=== PATIENT | female | born 1970 | race Caucasian/White ===

== ENCOUNTER 2019-09-10 13:34 | Emergency (ER) | payer OTHER, SELFPAY ==
[2019-09-10 13:47] VITALS: BP 123/72; PULSE 64; RESP 16; TEMP 37.2; O2SAT 100
--- NOTE | 2019-09-10 14:33 | ED.URI ---
HPI - URI/Sore Throat General Chief Complaint: Upper Respiratory Infection Stated Complaint: ear pain/howell/sore throat Source: patient Mode of arrival: ambulatory Limitations: no limitations History of Present Illness HPI Narrative: Patient is a 49-year-old female who presents complaining of headache, sore throat, bilateral ear pain, cough, sinus pressure, facial pain, dental pain and generalized body aches x10+ days. Patient reports being treated a month ago for dental infection. Patient reports scheduled root canal 09/17/2019. Patient reports intermittently taking Tylenol and ibuprofen for complaints without relief. Patient reports pain of 11/15. MD elicited complaint: cough, sore throat, nasal congestion and sinus pain Related Data Allergies Allergy/AdvReac Type Severity Reaction Status Date / Time No Known Allergies Allergy Verified 09/10/19 13:54 Review of Systems Review of Systems: Narrative: CONSTITUTIONAL: Denies fever, chills, or sweats. EYES: Denies visual changes, redness, or discharge. ENT: Denies rhinorrhea, reports congestion, sore throat, and bilateral otalgia. Reports facial pressure CARDIOVASCULAR: Denies chest pain, palpitations, or edema. RESPIRATORY: Reports cough, denies dyspnea. GASTROINTESTINAL: Denies abdominal pain, nausea, vomiting, or diarrhea. GENITOURINARY: Denies dysuria or hematuria. SKIN: Denies rash or itching. MUSCULOSKELETAL: Denies back pain, joint pain, or myalgia. NEUROLOGIC: Reports intermittent headache, denies numbness, dizziness, or weakness. PSYCHIATRIC: Denies anxiety or depression. PMFSH Past Medical History Medical History Chicken pox Depression Hemorrhoids Homozygous Factor V Leiden mutation Family History Family History Mother Hypertension Father Factor 5 Leiden mutation, heterozygous Social History Social History Smoking status: Never smoker Alcohol intake: current Exam Narrative: Exam Narrative: GENERAL: Well-appearing, well-nourished, and in no acute distress. HEAD: Normocephalic, atraumatic. EYES: EOMI. No redness or drainage. Conjunctiva are normal. ENT: Mucous membranes pink and moist. Nares clear. No rhinorrhea. TMs normal bilaterally. Throat mild erythema and edema, no exudate. Maxillary sinus tenderness with palpation. Uvula midline. NECK: AROM. Supple. No lymphadenopathy. CHEST: No respiratory distress. Clear to auscultation. HEART: Regular rate and rhythm. No murmur appreciated. Normal peripheral pulses. SKIN: Warm, dry, no rash. NEURO: No focal deficits. Alert and oriented x3. Gait steady. PSYCH: Normal affect. No signs of depression or anxiety. Course Vital Signs Vital signs: Vital Signs Temperature 37.2 C 09/10/19 13:47 Pulse Rate 64 09/10/19 13:47 Respiratory Rate 16 09/10/19 13:47 Blood Pressure 123/72 09/10/19 13:47 Pulse Oximetry 100 09/10/19 13:47 Temperature 37.2 C 09/10/19 13:47 Pulse Rate 64 09/10/19 13:47 Respiratory Rate 16 09/10/19 13:47 Blood Pressure 123/72 09/10/19 13:47 Pulse Oximetry 100 09/10/19 13:47 Reviewed MDM - URI/Sore Throat MDM Narrative Medical decision making narrative: Patient likely to have sinusitis. Discussed plan of care and treatment with antibiotics because of length of symptoms. Patient agrees with plan of care. Patient is stable for discharge to home with outpatient follow-up as needed. Differential Diagnosis Differential diagnosis: Likely upper respiratory infection and sinusitis Critical Care Time Critical Care Time Critical Care Time: No Discharge Plan Discharge Clinical Impression: Sinusitis Qualifiers: Sinusitis location: maxillary Chronicity: acute Recurrence: not specified as recurrent Qualified Code(s): J01.00 - Acute maxillary sinusitis, unspecified Patient Disposition:
== END 2019-09-10 14:47 | disposition home or self-care (01) ==
PROVIDERS: Emergency Provider Nurse Practitioner; PCP Nurse Practitioner
DX: J01.00 Acute maxillary sinusitis, unspecified (principal); F32.9 Major depressive disorder, single episode, unspecified
CPT/HCPCS: 87804; 99213; G0463

== ENCOUNTER → 2021-05-21 10:31 | Outpatient (CLI) | payer OTHER, SELFPAY ==
--- NOTE | ~2021-05-21 | MR_ITS ---
EXAMINATION: MR ankle RT wo con DATE: 05/21/2021 11:27 INDICATION: Achilles tendinitis with pain with walking TECHNIQUE: Magnetic resonance imaging (MRI) of the right ankle was performed without intravenous cont rast. Sequences included sagittal, coronal, and axial proton-density weighted fast spin echo without and with fat saturation. COMPARISON: Right foot radiographs dated 04/08/2017 FINDINGS: Medial ankle ligaments: Deep and superficial deltoid ligaments as well as the spring ligament are normal. Lateral ankle ligaments: The anterior and posterior inferior tibiofibular ligaments are normal. The anterior talofibular, calc aneofibular and posterior talofibular ligaments are normal. Tendons: There is mild fusiform thickening of the Achilles tendon centered approximately 3.5 cm above the inse rtion consistent with mild Achilles tendinosis. No evident tear or peritendinitis. The peroneus longu s tendon is normal. There is moderate tendinopathy and longitudinal split tearing of the peroneus tobias vis tendon beginning at the level of the retromalleolar groove and extends thickening distally to the level of the calcaneocuboid joint line. The tibialis anterior and extensor hallucis longus and exten sor digitorum longus tendons are normal. The tibialis posterior, flexor digitorum longus and flexor h allucis longus tendons are normal. Plantar fascia: Latter aponeurosis is normal. 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 Minimal osteoarthritis at the remai richard tarsal metatarsal joints. Bone marrow signal is otherwise normal. No fracture or pathologic claudia ow replacing process. Lisfranc ligament complex is normal. There is Tarsi and tarsal tunnel are unrem arkable. Fluid: Physiologic amount fluid in the joint spaces. No other abnormal fluid collections. IMPRESSION: 1. Moderate tendinopathy and longitudinal split tearing of the peroneus brevis tendon. 2. Mild Achilles tendinosis without peritendinitis or tear. 3. Mild to moderate osteoarthritis subarticular edema at the first tarsal metatarsal joint. Reviewed, dictated and finalized at location A. IMPRESSION: 1. Moderate tendinopathy and longitudinal split tearing of the peroneus brevis tendon. 2. Mild Achilles tendinosis without peritendinitis or tear. 3. Mild to moderate osteoarthritis subarticular edema at the first tarsal metat arsal joint.
== END ==
PROVIDERS: Visit Provider Podiatrist Foot & Ankle Surgery
DX: M76.61 Achilles tendinitis, right leg (principal); S96.811A Strain of other specified muscles and tendons at ankle and foot level, right foot, initial encounter; M19.071 Primary osteoarthritis, right ankle and foot
CPT/HCPCS: 73721

== ENCOUNTER 2022-05-04 08:54 | Outpatient (CLI) | payer OTHER, SELFPAY ==
[2022-05-04 19:55] LABS: Alanine Aminotransferase 20 U/L (6-35); Albumin Level 4.7 g/dL (3.5-5.1); Alkaline Phosphatase 70 U/L (38-126); Anion Gap 13 mmol/L (8-16); Aspartate Amino Transferase 62 U/L (14-36); Bilirubin,Total 0.5 mg/dL (0.2-1.3); Blood Urea Nitrogen 19 mg/dL (7-17); Calcium 9.7 mg/dL (8.4-10.2); Carbon Dioxide 29 mmol/L (22-30); Chloride 99 mmol/L (98-107); Cholesterol 190 mg/dL (0-200); Estimated Glomerular Filt Rate > 60; Glucose 84 mg/dL (65-110); HDL Direct 79 mg/dL; Potassium 4.7 mmol/L (3.4-5.0); Sodium 141 mmol/L (137-145); Triglycerides 48 mg/dL (<150)
[2022-05-04 20:06] LABS: LDL Cholesterol Direct 72 mg/dL
[2022-05-04 20:16] LABS: Basophils Percent Auto 0.7 % (0.2-1.2); Eosinophils Absolute Auto 0.1 K/mm3 (0-0.3); Eosinophils Percent Auto 1.8 % (0-4.4); Hematocrit 42.3 % (37.0-47.0); Hemoglobin 13.4 g/dL (12.0-15.0); Immature Granulocyte Absolute 0.01 K/mm3 (0.00-0.031); Immature Granulocyte Percent A 0.2 % (0-0.5); Lymphocytes Absolute Auto 1.59 K/mm3 (0.9-3.2); Lymphocytes Percent Auto 35.9 % (18.3-44.2); Mean Corpuscular HGB Conc 31.7 g/dl (32-36); Mean Corpuscular Hemoglobin 29.3 pg (26-34); Mean Corpuscular Volume 92.6 fl (80-100); Mean Platelet Volume 12.3 fl (7.4-10.4); Monocytes Absolute Auto 0.4 K/mm3 (0.1-0.6); Monocytes Percent Auto 9.3 % (2.6-8.5); Neutrophils Absolute Auto 2.3 K/mm3 (1.3-6.7); Neutrophils Percent Auto 52.1 % (45.5-73.1); Platelet Count Result 182 k/mm3 (150-375); Red Blood Count 4.57 M/mm3 (4.2-5.4); Red Cell Distribution Width 12.3 % (11.5-14.5); White Blood Count 4.4 K/mm3 (4.5-10.0)
[2022-05-04 20:25] LABS: Vitamin D 25 Hydroxy 44.2 ng/mL
[2022-05-04 20:26] LABS: Thyroid Stimulating Hormone 0.956 uIU/mL (0.465-4.680)
== END 2022-05-04 08:55 | disposition home or self-care (01) ==
LOC: ANHGOSHLAB 08:56
PROVIDERS: PCP Internal Medicine; Visit Provider Clinical Nurse Specialist
DX: Z13.228 Encounter for screening for other metabolic disorders (principal); Z13.220 Encounter for screening for lipoid disorders; F41.9 Anxiety disorder, unspecified; E55.9 Vitamin D deficiency, unspecified
CPT/HCPCS: 36415; 80053; 80061; 82306; 84443; 85025

== ENCOUNTER 2022-06-07 07:22 | Outpatient (CLI) | payer OTHER, SELFPAY ==
[2022-06-07 08:45] LABS: Iron 76 ug/dL (37-170)
[2022-06-07 08:48] LABS: Alanine Aminotransferase 21 U/L (6-35); Albumin Level 4.4 g/dL (3.5-5.1); Alkaline Phosphatase 78 U/L (38-126); Anion Gap 11 mmol/L (8-16); Aspartate Amino Transferase 30 U/L (14-36); Bilirubin,Total 0.7 mg/dL (0.2-1.3); Blood Urea Nitrogen 19 mg/dL (7-17); Calcium 8.9 mg/dL (8.4-10.2); Carbon Dioxide 27 mmol/L (22-30); Chloride 102 mmol/L (98-107); Estimated Glomerular Filt Rate > 60; Glucose 88 mg/dL (65-110); Potassium 4.3 mmol/L (3.4-5.0); Sodium 140 mmol/L (137-145)
[2022-06-07 08:57] LABS: Percent Iron Saturation 18 % (20-50)
[2022-06-07 09:56] LABS: Folic Acid > 20.0 ng/mL (2.76->20)
== END 2022-06-07 07:23 | disposition home or self-care (01) ==
LOC: ANHLAB 07:24
PROVIDERS: PCP Internal Medicine; Visit Provider Clinical Nurse Specialist
DX: R74.8 Abnormal levels of other serum enzymes (principal); R41.3 Other amnesia
CPT/HCPCS: 36415; 80053; 82607; 82728; 82746; 83540; 83550

== ENCOUNTER 2022-07-20 00:27 | Day surgery (SDC) | payer OTHER, SELFPAY ==
[2022-07-14 10:24] VITALS: BMI 22.1
[2022-07-20 06:23] VITALS: BP 135/83; PULSE 85; RESP 18; TEMP 36.2; O2SAT 98; BMI 22.4
[2022-07-20] MEDS: LACTATED RINGERS 1,000 ML 150 ML IV CONT (06:46)
--- NOTE | 2022-07-20 07:23 | WPDANESEPPF ---
Anes - Initial Pre Proc Eval Procedure: Operation Date: 07/20/22 07:30 Proposed Procedures p Screening Colonoscopy - Gerber Rawls MD Date/Time: 07/20/22 07:23 Surgeon: Gerber Rawls MD Pre Op Diagnosis: Neoplasm Screening Patient Data Age: 52 Gender: F Height: 1.75 m Weight: 68.8 kg Last Vital Signs Temp 97.1 F L 07/20/22 06:23 Pulse 85 07/20/22 06:23 Resp 18 07/20/22 06:23 BP 135/83 07/20/22 06:23 Pulse Ox 98 07/20/22 06:23 O2 Del Method Room Air 07/20/22 06:23 Allergies Allergy/AdvReac Type Severity Reaction Status Date / Time No Known Allergies Allergy Verified 07/20/22 06:31 Home Medications Medication Instructions Recorded Confirmed Type venlafaxine 37.5 mg 37.5 mg PO QPM #90 caps 07/08/22 07/20/22 Rx capsule,extended release 24 hr (Effexor XR) azithromycin 250 mg tablet See Rx Instructions PO .COMPLEX #6 07/16/22 07/20/22 Rx (Zithromax Z-Doug) tabs ibuprofen 200 mg tablet (Advil) 200 mg PO Q6H PRN pain 07/16/22 07/20/22 History Patient hx anesthesia problems: none Family hx anesthesia problems: none Results Review: All pre-operative results and documents have been reviewed as part of the pre-operative evaluation. 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 Smoking status: Never smoker Alcohol intake: current Alcohol use details: occasional Substance use: never Substance use type: does not use Lack of Transportation: No Lack of Food: Never True Current Housing: I Have Housing Concerned About Future Housing: No Difficulty Paying Gas/Electric Bills: No Difficulty Paying for Meds: No Currently Unemployed: No Education: Master's Degree or Higher Difficulty w/ Childcare or Family Care: No Living arrangements: with family Gender identity (if verbalized by the patient): Female Spiritual care concerns: No Agree to blood products: Yes Anes - Eval Final PreProcedure Day of Procedure 07/20/22 07:23 Patient weight: normal Heart: regular rate and rhythm Lungs: clear to auscultation Airway: Mallampati scale class II Neurological: alert and oriented Last oral intake: >/= 8 hours ASA classification: II Emergent: no Anesthetic plan: proceed Anesthesia type and monitoring: general GIVS and standard monitoring Results Review: All pre-operative results and documents have been reviewed as part of the pre-operative evaluation. Informed Consent: The patient's anesthetic plan and its attendant risks and benefits were discussed with the patient/family/POA. Questions were solicited and answers provided to the satisfaction of the patient/family/POA.
--- NOTE | 2022-07-20 07:27 | PM.HPGS ---
History of Present Illness History of Present Illness Consent: Risks, benefits, and alternatives have been discussed and questions answered. Patient agrees to proceed with procedure. Chief complaint: Neoplasm Screening Narrative: Ebony Benitez is a 52 year old female here for first screening colonoscopy Review of Systems Constitutional: Constitutional: Denies headache(s) and Denies weakness Eyes: Eyes: Denies blurry vision ENT: Reports Normal hearing present, Denies headache(s) and Denies neck pain Cardiovascular: Cardiovascular: Denies chest pain and Denies dyspnea Respiratory: Respiratory: Denies dyspnea Gastrointestinal: Gastrointestinal: Reports no additional gastrointestinal complaints Genitourinary: Genitourinary: Denies dysuria Musculoskeletal: Musculoskeletal: Denies neck pain Integumentary/Breasts: Skin/Breast: Denies dry skin Neurologic: Reports Normal hearing present, Denies headache(s) and Denies weakness Psychiatric: Psychiatric: Denies anxiety Endocrine: Endocrine: Denies change in body appearance Hematologic/Lymphatic: Hematologic/Lymphatic: Denies easy bleeding Allergic/Immunologic: Allergic/Immunologic: Denies urticaria PMFSH Past Medical History Medical History Anxiety Chicken pox Depression Hemorrhoids Homozygous Factor V Leiden mutation Family History Family History Mother Hypertension Father Factor 5 Leiden mutation, heterozygous Social History Social History (Updated 07/16/22 @ 15:48 by Lauren Goodman NP) Social History: 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. Smoking status: Never smoker Alcohol intake: current Alcohol use details: occasional Substance use: never Substance use type: does not use Lack of Transportation: No Lack of Food: Never True Current Housing: I Have Housing Concerned About Future Housing: No Difficulty Paying Gas/Electric Bills: No Difficulty Paying for Meds: No Currently Unemployed: No Education: Master's Degree or Higher Difficulty w/ Childcare or Family Care: No Living arrangements: with family Gender identity (if verbalized by the patient): Female Spiritual care concerns: No Agree to blood products: Yes Meds Home Medications and Allergies Home Medications Medication Instructions Recorded Confirmed Type venlafaxine 37.5 mg 37.5 mg PO QPM #90 caps 07/08/22 07/20/22 Rx capsule,extended release 24 hr (Effexor XR) azithromycin 250 mg tablet See Rx Instructions PO .COMPLEX #6 07/16/22 07/20/22 Rx (Zithromax Z-Doug) tabs ibuprofen 200 mg tablet (Advil) 200 mg PO Q6H PRN pain 07/16/22 07/20/22 History Allergies Allergy/AdvReac Type Severity Reaction Status Date / Time No Known Allergies Allergy Verified 07/20/22 06:31 Vital Signs Vital Signs - 24 hr 07/20/22 06:23 Temperature 97.1 F L Pulse Rate 85 Respiratory Rate 18 Blood Pressure 135/83 Pulse Oximetry 98 Oxygen Delivery Room Air Exam Const: General: comfortable and no acute distress HENMT: Face/Nose/Sinus: Normal nares present Eyes: General: appearance normal, both eyes and all related structures Neck: Neck: no JVD Resp: Auscultation: clear to auscultation bilaterally Cardio: Rate: regular rate Rhythm: regular rhythm GI: Inspection: non-distended GI Palp: Yes Soft to palpation Skin: General skin exam: normal color Neuro: General: gait normal Speech: normal speech Extrem: General: normal to inspection Psych: Mental Status: mental status grossly normal Assessment and Plan Assessment and plan (1) Screening for colon cancer: Code(s): Z12.11 - Encounter for screening for malignant neoplasm of colon Status: Acute Assessment and Plan: colonoscopy
[2022-07-20 07:41] VITALS: BP 104/61; PULSE 75; RESP 27; O2SAT 97
[2022-07-20 07:51] VITALS: BP 92/52; PULSE 66; RESP 14; O2SAT 98
[2022-07-20 08:01] VITALS: BP 107/70; PULSE 65; RESP 15; O2SAT 100
--- NOTE | 2022-07-20 08:13 | SUR.PHASEII ---
Patient's BP is elevated in post op. (see flow sheet) Informed Dr. Bridges and SHIRA Moore. No new interventions at this time. Instructed to tell patient to take BP meds when he gets home. Patient verbalizes understanding.
== END 2022-07-20 08:16 | disposition home or self-care (01) ==
PROVIDERS: PCP Internal Medicine; Visit Provider Internal Medicine Gastroenterology
PROC: 0DJD8ZZ Inspection of Lower Intestinal Tract, Via Natural or Artificial Opening Endoscopic (ICD-10-PCS; CPT 45378; principal; 2022-07-20 07:30)
DX: Z12.11 Encounter for screening for malignant neoplasm of colon (principal); K64.8 Other hemorrhoids; F41.9 Anxiety disorder, unspecified; F32.A Depression, unspecified; D68.51 Activated protein C resistance
CPT/HCPCS: 45378; J2704; J7120

== ENCOUNTER 2023-08-24 09:01 | Outpatient (CLI) | payer OTHER, SELFPAY ==
[2023-08-24 13:13] LABS: Basophils Percent Auto 0.6 % (0.2-1.2); Eosinophils Absolute Auto 0.2 K/mm3 (0-0.3); Eosinophils Percent Auto 2.9 % (0-4.4); Hematocrit 41.7 % (37.0-47.0); Hemoglobin 13.2 g/dL (12.0-15.0); Immature Granulocyte Absolute 0.01 K/mm3 (0.00-0.031); Immature Granulocyte Percent A 0.2 % (0-0.5); Lymphocytes Absolute Auto 1.69 K/mm3 (0.9-3.2); Lymphocytes Percent Auto 32.1 % (18.3-44.2); Mean Corpuscular HGB Conc 31.7 g/dl (32-36); Mean Corpuscular Volume 91.6 fl (80-100); Mean Platelet Volume 11.6 fl (7.4-10.4); Monocytes Absolute Auto 0.5 K/mm3 (0.1-0.6); Monocytes Percent Auto 9.7 % (2.6-8.5); Neutrophils Absolute Auto 2.9 K/mm3 (1.3-6.7); Neutrophils Percent Auto 54.5 % (45.5-73.1); Platelet Count Result 205 k/mm3 (150-375); Red Blood Count 4.55 M/mm3 (4.2-5.4); Red Cell Distribution Width 12.2 % (11.5-14.5); White Blood Count 5.3 K/mm3 (4.5-10.0)
[2023-08-24 13:57] LABS: Iron 112 ug/dL (37-170)
[2023-08-24 14:06] LABS: Percent Iron Saturation 29 % (20-50)
[2023-08-27 07:41] LABS: FSH 72.3 mIU/mL (***); Progesterone <0.2 ng/mL (***)
[2023-08-31 21:02] LABS: Estradiol, Ultrasensitive <2 pg/mL
== END 2023-08-24 09:02 | disposition home or self-care (01) ==
LOC: ANHGOSHLAB 09:02
PROVIDERS: PCP Internal Medicine; Visit Provider Obstetrics & Gynecology
DX: N93.9 Abnormal uterine and vaginal bleeding, unspecified (principal)
CPT/HCPCS: 36415; 82670; 82728; 83001; 83540; 83550; 84144; 85025

== ENCOUNTER → 2023-09-19 11:07 | Outpatient (CLI) | payer OTHER, SELFPAY ==
--- NOTE | ~2023-09-19 | MM_ITS ---
EXAMINATION: MM screening [facility] BI w sai HISTORY: Screening mammogram TECHNIQUE: Craniocaudal and mediolateral oblique 3-D tomosynthesis images were obtained and synthetic 2-D images were generated. CAD analysis was submitted and interpreted. COMPARISON: 06/22/2019, 01/20/2018, 05/31/2016 BREAST PARENCHYMAL COMPOSITION: The breasts are extremely dense, which lowers the sensitivity of mamm ography. FINDINGS: No suspicious mass, calcification, or architectural distortion are identified in either tobias ast to suggest malignancy. There has been no suspicious interval change. IMPRESSION: 1. No mammographic evidence of malignancy. 2. Recommend routine screening mammography in one year. BI-RADS Category 1: Negative Reviewed, dictated and finalized at location A. ICAL SOCIAL WORK AIDE
== END ==
PROVIDERS: PCP Nurse Practitioner; Visit Provider Nurse Practitioner
DX: Z12.31 Encounter for screening mammogram for malignant neoplasm of breast (principal)
CPT/HCPCS: 77063; 77067

== ENCOUNTER 2024-09-21 10:36 | Outpatient (CLI) | payer OTHER, SELFPAY ==
--- NOTE | ~2024-09-21 | MM_ITS ---
EXAMINATION: MM screening [facility] BI w sai HISTORY: Screening TECHNIQUE: Craniocaudal and mediolateral oblique 3-D tomosynthesis images were obtained and synthetic 2-D images were generated. CAD analysis was submitted and interpreted. COMPARISON: Comparison to multiple prior studies sequentially, with oldest reviewed study dated 05/09. BREAST PARENCHYMAL COMPOSITION: Dense: The breasts are heterogeneously dense, which may obscure small masses FINDINGS: There is no evidence of suspicious mass, calcification, or architectural distortion to sugg est malignancy in either breast. There has been no suspicious interval change. IMPRESSION: 1. No mammographic evidence of malignancy. 2. Recommend routine screening mammography in one year. BI-RADS Category 1: Negative Reviewed, dictated and finalized at location B. WAY SHUNTER
== END 2024-09-21 10:37 | disposition home or self-care (01) ==
LOC: MICIMG 10:37
PROVIDERS: PCP Internal Medicine; Visit Provider Obstetrics & Gynecology
DX: Z12.31 Encounter for screening mammogram for malignant neoplasm of breast (principal)
CPT/HCPCS: 77063; 77067

== ENCOUNTER 2024-11-07 08:56 | Outpatient (CLI) | payer OTHER, SELFPAY ==
--- OUTSIDE RECORDS SUMMARY | 2024-11-07 09:24 | XMS_ITS | Clinical Summary ---
Author Organization [facility] Address [address] Attn: Epic Prelude ADT [place] [id number] Care Team Providers Care Cattle Feeder Name Role Phone Unavailable Primary Care Provider Unavailabl e Medications venlafaxine (EFFEXOR XR) 37.5 mg Extended Release 24 hour capsule Take 1 Capsule (37.5 mg) by mouth every evening. 30 Capsule 1 2 7:34 PM SECURITIES ANALYST 05/03/20 22 Active venlafaxine (EFFEXOR XR) 37.5 mg Extended Release 24 hour capsule Take 1 capsule by mouth every evening 30 Capsule 1 2 5:04 PM CDT 06/07/20 22 Active venlafaxine (EFFEXOR XR) 37.5 mg Extended Release 24 hour capsule Take one capsule (37.5 mg) orally every evening 90 Capsule 1 07/08/20 22 Active azithromycin (ZITHROMAX) 250 mg tablet Take two tablets( 500 mg) by mouth today (day 1), then one tablet (250 mg) for 4 days (days 2-5) 6 Tablet 2 5:02 PM SECURITIES ANALYST 07/16/20 22 Active sertraline (ZOLOFT) 25 mg tablet Take 1 Tablet (25 mg) by mouth daily. 30 Tablet 1 3 5:54 PM SECURITIES ANALYST 05/30/20 23 Active sertraline (ZOLOFT) 50 mg tablet Take 1 Tablet (50 mg) by mouth daily. 90 Tablet 1 4 11:56 AM CDT 07/13/20 23 Active methylPREDNISo lone (MEDROL DOSPACK) 4 mg Tablets, Dose Pack TAKE DIRECTED ON PACKAGE. 21 Each 4 12:11 PM SECURITIES ANALYST 10/05/19 24 Active nirmatrelvir-r itonavir (Paxlovid) 300(150mg x 2)-100 mg oral pack take TWO 150 mg tablets of nirmatrelvir with ONE 100 mg tablet of ritonavir twice daily for 5 days PO 30 Each 01/17/20 24 Active meloxicam (MOBIC) 15 mg tablet Take 1 tablet (15 mg total) by mouth daily with breakfast. 30 Tablet 4 10:35 AM CDT 05/15/20 24 Active sertraline (ZOLOFT) 50 mg tablet Take 1 Tablet (50 mg) by mouth daily. 90 Tablet 1 4 2:22 PM SECURITIES ANALYST 03/14/20 24 025 Discontinued Social History Tobacco Use Types Packs/Day Years Used Date Smoking Tobacco: Never Assessed Comments Unknown Sex and Gender Information Value Date Recorded Sex Assigned at Not on file Legal Sex Female 3:27 PM CDT Gender Identity Not on file Sexual Orientation Not on file Plan of Treatment Health Maintenance Due Date Last Done Comments DTAP/TDAP/TD VACCINES (1 - Tdap) 1991 HEPATITIS B VACCINES (1 of 3 - 19+ 3-dose series) 03/1991 HPV/Cotest (21-29) 1993 CERVICAL CANCER SCREENING 2002 HPV/Cotest (30-65) 2002 PAP SMEAR 2002 BREAST CANCER SCREENING 2012 COLORECTAL SCREENING 2017 Colorectal Cancer Screening 2017 FIT-DNA Q 3 years 2017 FIT/FOBT Q 1 year 2017 Flex Sig/CT Colonography Q 5 years 2017 ZOSTER VACCINE (1 of 2) 2022 INFLUENZA VACCINE (#1) 2024 Insurance RX [facility] [employer] (INTERNAL) [facility]
--- OUTSIDE RECORDS SUMMARY | 2024-11-07 09:24 | XMS_ITS | Data Portability ---
Author Organization [employer] ([employer]) Sequence, [facility] Address [address] [address] Assessment No assessment recorded. Plan of Treatment Reminders Order Date Submit Date Provider Last Modified By Organization Details Last Modified Time Details Appointments None recorded. Lab CBC w/ auto diff 2020 EVANGELINA Not available 11:21:52 vitamin D, 25-hydroxy, total, serum 2020 EVANGELINA Not available 11:21:53 testosteron e, free, serum 2020 [email or web address] Not available 08:38:53 testosteron e, total, serum 2020 Not available 08:38:53 HbA1c (hemoglobin A1c), blood 2020 EVANGELINA Not available 11:21:54 CRP, high sensitivity , serum or plasma 2020 EVANGELINA Not available 11:21:53 Referral None recorded. Procedures None recorded. Surgeries None recorded. Imaging XR, foot, 3 or more view 2020 [email or web address] Not available 08:38:53 Medication Orders cephalexin 500 mg capsule 2020 [email or web address] Not available 08:39:25 Patient TargetsNo targets recorded. Patient InstructionsNo instructions recorded. Reason for Referral None Reported. Results Created Date Observation Date Name Description Value Unit Range Abnormal Flag Note LastModifiedBy Organization Detail LastModifiedTime 08/06/2008/11/2021 CBC (INCL UDES DIFF/ PLT) white blood cell count 5.0 thous and/u L 3.8-10 .8 normal Not Available [address], [address], 08/11/2021 11:21:52 08/06/2008/11/2021 CBC (INCL UDES DIFF/ PLT) red blood cell count 4.46 derrell on/uL 3.80-5 .10 normal Not Available [address], [address], 08/11/2021 11:21:52 08/06/20 21 08/11/2021 CBC (INCL UDES DIFF/ PLT) hemoglobin 12.9 g/dL 11.7-1 5.5 normal Not Available [address], [address], 08/11/2021 11:21:52 08/06/2008/11/2021 CBC (INCL UDES DIFF/ PLT) hematocrit 39.2 % 35.0-4 5.0 normal Not Available [address], [address], 08/11/2021 11:21:52 08/06/2008/11/2021 CBC (INCL UDES DIFF/ PLT) MCV 87.9 fL 80.0-1 00.0 normal Not Available [place] [address], [address], 08/11/2021 11:21:52 08/06/20 21 08/11/2021 CBC (INCL UDES DIFF/ PLT) MCH 28.9 pg 27.0-3 3.0 normal Not Available [place] [address], [address], 08/11/2021 11:21:52 08/06/2008/11/2021 CBC (INCL UDES DIFF/ PLT) MCHC 32.9 g/dL 32.0-3 6.0 normal Not Available [address], [address], 08/11/2021 11:21:52 08/06/20 21 08/11/2021 CBC (INCL UDES DIFF/ PLT) RDW 12.1 % 11.0-1 5.0 normal Not Available [address], [address], 08/11/2021 11:21:52 08/06/20 21 08/11/2021 CBC (INCL UDES DIFF/ PLT) platelet count 156 thous and/u L 140-40 0 normal Not Available [address], [address], 08/11/2021 11:21:52 08/06/20 21 08/11/2021 CBC (INCL UDES DIFF/ PLT) MPV 12.6 fL 7.5-12 .5 high Not Available [address], [address], 08/11/2021 11:21:52 08/06/20 21 08/11/2021 CBC (INCL UDES DIFF/ PLT) absolute neutrophils 2885 cells /uL 1500-7 800 normal Not Available [address], [address], 08/11/2021 11:21:52 08/06/20 21 08/11/2021 CBC (INCL UDES DIFF/ PLT) absolute lymphocytes 1565 cells /uL 850-39 00 normal Not Available [address], [address], 08/11/2021 11:21:52 08/06/20 21 08/11/2021 CBC (INCL UDES DIFF/ PLT) absolute monocytes 430 cells /uL 200-95 0 normal Not Available [address] [place], [address], 08/11/2021 11:21:52 08/06/20 21 08/11/2021 CBC (INCL UDES DIFF/ PLT) absolute eosinophils 90 cells /uL 15-500 normal Not Available [facility] [address], [address], 08/11/2021 11:21:52 08/06/2008/11/2021 CBC (INCL UDES DIFF/ PLT) absolute basophils 30 cells /uL 0-200 normal Not Available [facility] [address], [address], 08/11/2021 11:21:52 08/06/2008/11/2021 CBC (INCL UDES DIFF/ PLT) neutrophils 57.7 % normal Not Available [facility] [address], [address], 08/11/2021 11:21:52 08/06/2008/11/2021 CBC (INCL UDES DIFF/ PLT) lymphocytes 31.3 % normal Not Available [facility] [address], [address], 08/11/2021 11:21:52 08/06/20 21 08/11/2021 CBC (INCL UDES DIFF/ PLT) monocytes 8.6 % normal Not Available [facility] [address], [address], 08/11/2021 11:21:52 08/06/2008/11/2021 CBC (INCL UDES DIFF/ PLT) eosinophils 1.8 % normal Not Available [facility] [address], [address], 08/11/2021 11:21:52 08/06/20 21 08/11/2021 CBC (INCL UDES DIFF/ PLT) basophils 0.6 % normal Not Available [facility] [address], [address], 08/11/2021 11:21:52 08/06/20 21 08/11/2021 HS CRP hs CRP 0.5 mg/L normal Refer ence Range Optim al <1.0 Melany CONTE et al. Endoc r Pract .2017 ;23(S uppl 2):1- 87. For ages >17 Years : hs-CR P mg/L Risk Accor ding to AHA/C DC Guide lines <1.0 Lower relat carla cardi ovasc ular risk. 1.0-3 .0 [place] ge relat carla cardi ovasc ular risk. 3.1-1 0.0 Highe r relat carla cardi ovasc ular risk. Consi ibrahima retes ting in 1 to 2 weeks to exclu de a benig n trans ient eleva tion in the basel ine CRP value secon merry to infec tion or infla mmati on. >10.0 Persi stent eleva tion, upon retes ting, may be assoc iated with infec tion and infla mmati on. Not Available [facility] [address], [place], [address], 08/11/2021 11:21:53 08/06/20 21 08/11/2021 VITAM IN D,25- OH,TO EMPERATRIZ,I A vitamin D,25-oh,tota l,ia 21 NG/mL 30-100 low Vitam in D Statu s 25-OH Vitam in D: Defic iency : <20 ng/mL Insuf ficie ncy: 20 - 29 ng/mL Optim al: > or = 30 ng/mL For 25-OH Vitam in D testi ng on patie nts on D2-vega pplem entat ion and patie nts for whom quant itati on of D2 and D3 fract ions is requi red, the [facility] Ass[facility] eD(TM ) 25-OH VIT D, (D2,D 3), LC/MS /MS is recom gallo d: order code 52712 (mason ents >2yrs ). See Note 1 Note 1 For addit ional infor karen hedrick refer to http: //anna Chanel stDia gnost ics.c om/fa q/FAQ 199 (This link is being provi ded for leif rizzo/ educa brenden l purpo ses only. ) Not Available [facility] [address] , [place], [address], 08/11/2021 11:21:53 08/06/2008/11/2021 HEMOG LOBIN A1C hemoglobin A1C 5.3 %_of_ total _HGB <5.7 normal Not Available [facility] [address], [place], [address], 08/11/2021 11:21:54 08/06/2008/11/2021 TESTO STERO NE, FREE (DIAL YSIS) AND TOTAL ,MS testosterone , total, MS 16 NG/dL 2-45 For addit ional karen yanes refer to https ://ed ati on.qu barbiSway. Paragon 28/f aq/FA Q165 (This link is being provi ded for infor matdelfina nal/e ducat ional purpo ses only. ) (Note ) This test was devel oped and its mariya tical perfo rmanc e melony cteri stics have been deter mined by [employer]. It has not been clear ed or appro jana by the FDA. This assay has been valid ated pursu ant to the CLIA regul ation s and is used for clini namita purpo ses. Not Available [facility] [address], [place], [address], 08/11/2021 11:21:54 08/06/2008/11/2021 TESTO STERO NE, FREE (DIAL YSIS) AND TOTAL ,MS testosterone , free 1.6 pg/mL 0.1-6. 4 (Note ) This test was devel oped and its mariya tical perfo rmanc e melony cteri stics have been deter mined by [employer]. It has not been clear ed or appro jana by the FDA. This assay has been valid ated pursu ant to the CLIA regul ation s and is used for clini namita purpo ses. SOF[facility] med fusio n [address] [facility] [address] [place] [address] [phone] Prieto conteh MD Not Available [facility] [address], [place], [address], 08/11/2021 11:21:54 07/15/2005/21/2021 MRI, ankle , w/o contr ast No observ ation record ed. BARCODE Not Available 2020 13:23:34 Result Notes None recorded. Problems No Known Problems Procedures Surgical History Date Name Laterality Status Provider Name and Address Organization Details Recorded Time Generic Procedure completed [facility] [address], [place], [address] [employer] 2021 08:55:47 Imaging Results Imaging Date Name Status LastModified by Organiz ation Details LastModified Time 05/21/2021 MRI, ankle, w/o contrast completed [facility] Information not available 2021 13:23:34 Procedure Notes None recorded. Medical Equipment None Reported. Allergies No known drug allergies Medications Name Sig Start Date Stop Date Status Note LastModified by Organization Details LastModified Time hydrocodone 5 mg-acetamino phen 325 mg tablet Take 1 tablet every 6 hours by oral route as needed for 7 days. active Not Available Not Available Not Available cephalexin 500 mg capsule Take 4 capsules (total of 2g) po one hour prior to procedure. One time dose. active Not Available Not Available No t Available diazepam 10 mg tablet Take 1 tablet(s) 30 mins PRIOR to appointment PRN and repeat as directed by physician. active Not Available Not Available N ot Available Vitals Date Recorded Body height Body mass index (BMI) Body weight Heart rate Systolic blood pressure Diastolic blood pressure Provider Name and Address Organization Details Last Updated DateTime 1 175.26 cm 21.9 kg/m2 60249.6 7 g 76 /min 137 mm[Hg] 80 mm[Hg] Andrew Souza [employer] 12/07/202 1 15:20:10 Social History None recorded. Functional Status None recorded. Mental Status None recorded. Family History Relationship Description Onset Age of this Age Resolved Age Notes LastModified by Organization Details LastModified Time Mother Hypertensive disorder Not available 2020 15:20:47 Father Factor V deficiency Not available 07/14 15:21:11 Medical History Condition Response Other Cancer N Coronary Artery Disease N HIV or AIDS N Gout N Kidney Stones N Hyperthyroidism N Breast Cancer N Head Trauma/Injury N Hernia N Lung Cancer N COPD N Depression N Blood Clots N Lung Disease N Hypothyroidism N Pacemaker N Anxiety Disorder N Arthritis N Alcohol / Substance Abuse N Kidney Cancer N Cancer N Stroke N Melanoma N Neck Injury N Leg or Foot Ulcers N High Cholesterol N Skin Cancer N Liver Disease N Rheumatoid Arthritis N Fibromyalgia N Headaches N Concussion N Kidney Disease N Heart Problems N Chronic use of Pain Medication N Prostate Cancer N Migraines N Thyroid Problems N Alzheimers N Autoimmune Disorder N Anemia N Multiple Sclerosis N Tendon Tear N Ulcers N Heart Attack (VT) N Diabetes N Bleeding Disorder N Seizures/Epilepsy N Cardiac Stent N Tuberculosis N Urinary Tract Infection N Back Problems N Diverticulitis N Asthma N Lupus N Peripheral Vascular Disease N Sleep Disorder N GERD/Reflux N Hepatitis N Aneurysm N Thyroid Cancer N Heart Disease N Pulmonary Embolism N Hypertension N Osteoporosis N Gynecological HistoryNo gynecological history recorded. Obstetrics History GPAL:G 0 P 0 0 0 0 Past Encounters Encounter ID Performer Location Encounter Start Date Encounter Closed Date Diagnosis/Indication Diagnosis SNOMED-CT Code Diagnosis ICD10 Code Diagnosis Note [id number] [facility] [address] [facility] [address] [place] [address] 07/14/2021 15:07:59 07/14/2021 16:25:32 Right Achilles tendinitis [id number] 54323 M76.61 Screening procedure 2012 5006 Z13.9 Z01.812 R53.83 M89.9 M94.9 E55.9 Z13.228 Z13.1 M02.80 Antibiotic prophylaxis indicated 455401636 Z78.9 Peroneal t endinitis of right lower limb [id number] 12516 M76.71 At today's office visit the patient's diagnosis and treatment options were discussed in great detail. The patient was provided with informatio n to make an informativ e decision on the next steps for treatment. The patient has tried several conservati ve measures including but not limited to PT, rest, ice, and NSAIDs with no beneficial relief. Given the imaging results and the duration of the patient's symptoms I would recommend BMAC with fat as they are an excellent candidate. [facility]. The risk and benefits were discussed with the patient as well as functional and pain improvemen t outcomes. The procedure was discussed in detail as well as the recovery period. We discussed screening with R3 and its importance . We also discussed obtaining labs to ensure the patient is optimized for maximal results. I also discussed other conservati ve options. The patients case and treatment plan were reviewed in detail with Dr. Falk. PLAN: [facility]/fat to right Achilles tendon as well as peroneal brevis All questions were answered, the patient understood the treatment plan. Greater than 45 minutes face-to-fa ce visit with more than 50% of my time spent counseling the patient about their diagnosis including pathophysi ology and treatment options. Health Concerns Section Related Observation LastModified by Organization Detai ls LastModified Time None Recorded Concern Status LastModified by Organization Details LastModified Time None Recorded Advance Directives Directive None Recorded Payers Encounter Date Sequence Insurance Name Policy Number Policy Dailey Covered Member ID Dailey Member ID Guarantor Name 07/14/2021 1 [employer] - CHOICE (POS II) [id number] Ebony Benitez [id number] Ebony Benitez Notes Date Note Type Note Provider Name and Address Organization Details Recorded Time 07/14/2021 text/html [age] micah g the Achilles tendon more in the mid body of the tendon as opposed to the insertion point. She also complains of lateral ankle pain. She states she has had pain and discomfort in her ankle since summer whenever she was running a lot. She describes her pain as aching, intermittent sharp she occasionally gets burning on the lateral aspect of her ankle. She states she experiences the pain at random moments. Nothing really makes it better. She has tried rest, ice, bracing and physical therapy. She rates her pain as a 3/10. [facility] [address], [place], [address], [facility], [facility] 2021 08:57:29 OBGyn Episode No OBEpisode recorded.
--- OUTSIDE RECORDS SUMMARY | 2024-11-07 09:24 | XMS_ITS | Clinical Summary ---
Author Organization [facility] Address [address] [place] [address] Care Team Providers Care Per Diem Physical Therapist Assistant Name Role Phone Reynaldo Benton DO Primary Care Provider [phone] [facility],non-owned Affiliates and Associated Physician Practices is amultiple site organization consisting of ambulatory clinics and hospital sitesin [place], [place], [place] and [place]. This disclosure is being madepursuant to the Care Everywhere program and may not contain all information available regarding this patient. Last updated 18.[facility] Allergies No known active allergies Medications * Be aware that medications may not be up to date on this document. Alwaysverify current medications with the patient. Medication Sig Dispensed Refills Start Date End Date Status albuterol HFA (VENTOLIN HFA) 108 (90 BASE) MCG/ACT inhaler Inhale 2 Puffs by mouth every 6 hours as needed for Wheezing or Cough 1 Inhaler 11/18/2016 Active predniSONE (DELTASONE) 20 MG tablet Take 1 Tab by mouth 2 times daily 14 Tab 11/18/2016 Active Active Problems No known active problems Social History Tobacco Use Types Packs/Day Years Used Date Smoking Tobacco: Never Sex and Gender Information Value Date Recorded Sex Assigned at Not on file Gender Identity Not on file Sexual Orientation Not on file Last Filed Vital Signs Vital Sign Reading Time Taken Comments Blood Pressure 110/66 11/18/2016 4:20 PM CDT Pulse 69 11/18/2016 4:20 PM CDT Temperature 36.9 C (98.4 F) 11/18/2016 4:20 PM CDT Respiratory Rate 18 11/18/2016 4:20 PM CDT Oxygen Saturation 95% 11/18/2016 4:20 PM CDT Inhaled Oxygen Concentration - - Weight 65.8 kg (145 lb) 11/18/2016 4:20 PM CDT Height 175.3 cm (5' 9 ) 11/18/2016 4:20 PM CDT Body Mass Index 21.41 11/18/2016 4:20 PM CDT Plan of Treatment Health Maintenance Due Date Last Done Comments COLOGUARD (AGES 45-75) - COL ON CA SCREENING 1972 COLON MONITORING 1972 COLONOSCOPY - COLON CA SCREENING 1972 CT COLONOGRAPHY - COLON CA SCREENING 1972 Colorectal Cancer Screening 1972 FIT - COLON CA SCREENING 1972 FLEX SIG - COLON CA SCREENING 1972 LIPID TESTING 1972 MAMMOGRAM 1972 PAP SMEAR 1972 HIV SCREENING 1987 HEPATITIS C SCREENING 07/11/1990 DTAP/TDAP/TD VACCINES (1 - Tdap) 1991 HEPATITIS B VACCINE (1 of 3 - 19+ 3-dose series) 1991 PNEUMOCOCCAL VACCINE 50+ (1 of 1 - PCV) 2022 ZOSTER VACCINE (1 of 2) 2022 COVID-19 VACCINE (1 - 2023-2 5 season) 2024 INFLUENZA VACCINE (#1) 2024 DEPRESSION SCREENING 08/08/2024 HIB VACCINE Aged Out No longer eligi ble based on patient's age to complete this topic HPV VACCINE Aged Out No longer eligi ble based on patient's age to complete this topic MENINGOCOCCAL (Group B) VACC INE SHARED DECISION-MAKING Aged Out No longer eligibl e based on patient's age to complete this topic MENINGOCOCCAL GROUPS A/C/Y/W VACCINE Aged Out No longer eligible b ased on patient's age to complete this topic PNEUMOCOCCAL VACCINE Aged Out No long er eligible based on patient's age to complete this topic Care Teams Per Diem Physical Therapist Assistant Relationship Specialty Start Date End Date Reynaldo Benton DO PCP - General Internal Medicine 11/18/16
--- OUTSIDE RECORDS SUMMARY | 2024-11-07 09:24 | XMS_ITS | Encounter Summary ---
Author Organization [facility] Address [address] [place] [address] Care Team Providers Care Cement And Concrete Plant Worker Name Role Phone Reynaldo Benton DO Primary Care Provider [phone] Encounter Details Date Type Department Care Team (Late st Contact Info) Description 02/16/2024 Lab Requisition [facility] Physician [facility] - DermPath Lab [address] [facility], [facility] [place] [address] Alyssa Christensen DO [address] [facility] [address] [place] [address] Social History Tobacco Use Types Packs/Day Years Used Date Smoking Tobacco: Never Sex and Gender Information Value Date Recorded Sex Assigned at Not on file Gender Identity Not on file Sexual Orientation Not on file documented as of this encounter Plan of Treatment Not on file documented as of this encounter Procedures Procedure Name Priority Date/Time Associated Diagnosis Comments DERMATOPATHOLOGY Routine 02/16/2024 1:37 PM CDT documented in this encounter Results * DERMATOPATHOLOGY (02/16/2024 1:37 PM CDT) Case Report Dermatopathology Report Case: [id number] Authorizing Provider: Alyssa Christensen DO Collected: 02/16/2024 01:37 PM Ordering Location: [facility] - Received: 02/17/2024 04:28 PM DermPath Lab Pathologist: Praveen Osorio MD Specimen: Skin, right nasal sidewall 4:46 PM CDT DERMATOPATHOLOGY LABORATORY Final Diagnosis Specimen A. SKIN, right nasal sidewall: SEBORRHEIC KERATOSIS, MACULAR (L82.1) SOLAR LENTIGO (L81.4) 4 4:46 PM CDT DERMATOPATHOLOGY LABORATORY Clinical History SK vs Lentigo r/o atypia 4 4:46 PM CDT DERMATOPATHOLOGY LABORATORY Gross Description Specimen A: Received is one formalin filled container labeled with the patient's name and designated right nasal sidewall. The specimen consists of a shave biopsy measuring 9x7x1 mm. Jar 0. 4:46 PM CDT DERMATOPATHOLOGY LABORATORY Microscopic Description Specimen A. SKIN, right nasal sidewall: Sections show a relatively broad, flat proliferation of small keratinocytes. The surface is gently papillated, and there is increased basilar pigmentation. In addition, there is adjacent orthokeratosis. There is a slight increase in epidermal thickness with lentiginous buds of hyperpigmented keratinocytes. The number of melanocytes is only mildly increased. In the dermis, there is basophilic degeneration of elastic fibers. 4:46 PM CDT DERMATOPATHOLOGY LABORATORY Disclaimer An external and internal positive and negative controls are appropriate for the histochemical, immunohistochemical and immunofluorescence stain(s) in this case (if any), except where stated explicitly. The performance characteristics of the stain(s) cited in this report were developed and its performance characteristic determined by the Dermatopathology Laboratory at [facility], directed by Dr. Luc Osorio. These tests need not be, and therefore are not, approved by the [place] Food and Drug Administration. The tests are used for clinical purposes. Billing Codes Specimen Charges Stain Charges 42729 1 4 4:46 PM CDT DERMATOPATHOLOGY LABORATORY Embedded Images 4:46 PM CDT DERMATOPATHOLOGY LABORATORY Pathology/Cytolo gy TISSUE SPECIMEN FROM SKIN / Unknown 02/16/2024 1:37 PM CDT 02/17/2024 4:28 PM CDT Alyssa Christensen DO LAB - PATHOLOGY/C YTOLOGY ORDERABLES DERMATOPATHOLOGY LABORATORY [facility] - Department of Dermatology [address] [phone] documented in this encounter Visit Diagnoses Not on filedocumented in this encounter Care Teams Cement And Concrete Plant Worker Relationship Specialty Start Date End Date Reynaldo Benton DO PCP - General Internal Medicine 11/18/16 documented as of this encounter
--- OUTSIDE RECORDS SUMMARY | 2024-11-07 09:24 | XMS_ITS | Referral Summary ---
Author Organization [facility] [address] Address [address] [place] [address] Care Team Providers Care Customs And Border Protection Inspector Name Role Phone Reynaldo Benton DO Primary Care Provider [phone] Encounters Date Type Department Care Team Description 10/16/2024 10:15 AM CDT Office Visit [facility] Surgery [address] [place] [address] [place] [address] James Blank MD Left inguinal hernia from Last 3 Months Allergies No known active allergies Medications albuterol HFA (PROVENTIL HFA,VENTOLIN HFA,PROAIR HFA) 90 mcg/actuation inhaler Inhale 2 puffs every 6 (six) hours as needed 7 Active predniSONE (DELTASONE) 20 mg tablet Take 1 tablet (20 mg) by mouth 2 (two) times a day 7 Active meloxicam (MOBIC) 15 mg tablet Take 1 tablet (15 mg total) by mouth daily with breakfast Take 1 daily with food 30 tablet 4 Active sertraline (ZOLOFT) 25 mg tablet Take 1 tablet (25 mg total) by mouth daily Active Active Problems Problem Noted Date Diagnosed Date Left inguinal hernia 07/19/2018 Immunizations Immunization Administration Dates Next Due Pfizer SARS-CoV-2 Monovalent Vaccination (12+ Yrs) PURPLE 10/20/2020,09/21/2020 Social History Tobacco Use Types Packs/Day Years Used Date Smoking Tobacco: Never Smokeless Tobacco: Never Tobacco Cessation:Counseling Given: Not Answered Alcohol Use Standard Drinks/Week Comments Yes 0 (1 standard drink = 0.6 oz pur e alcohol) DAILY Comments Unknown Sex and Gender Information Value Date Recorded Sex Assigned at Not on file Legal 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 Gender Identity Not on file Sexual Orientation Not on file Last Filed Vital Signs Vital Sign Reading Time Taken Comments Blood Pressure 126/78 10/16/2024 10:18 AM CDT Pulse 69 10/16/2024 10:18 AM CDT Temperature - - Respiratory Rate - - Oxygen Saturation - - Inhaled Oxygen Concentration - - Weight 74.8 kg (164 lb 12.8 oz) 025 10:18 AM CDT Height 162.6 cm (5' 4 ) 10/16/2024 10:1 8 AM CDT Body Mass Index 28.29 10/16/2024 10:18 AM CDT Plan of Treatment Not on file Insurance [facility] [employer] [facility] Care Teams Customs And Border Protection Inspector Relationship Specialty Start Date End Date Reynaldo Benton DO PCP - General Internal Medicine 07/19/18
--- OUTSIDE RECORDS SUMMARY | 2024-11-07 09:24 | XMS_ITS | Clinical Summary ---
Author Organization [facility] [place] [address] Address [address] [place] [id number] Care Team Providers Care Truck Driver Instructor Name Role Phone Reynaldo Benton DO Primary Care Provider [phone] Allergies No known active allergies Medications albuterol [...] Date Diagnosed Date Left inguinal hernia 07/19/2018 Encounters Date Type Department Care Team Description 10/16/2024 10:15 AM CDT Office Visit [facility] [address] [place] [address] [place] [id number] James Blank MD Left inguinal hernia from Last 3 Months Immunizations Immunization Administration Dates Next Due Pfizer SARS-CoV-2 Monovalent Vaccination (12+ Yrs) PURPLE 10/20/2020,09/21/2020 Family History Medical History Relation Name Comments Hypertension Other Family history of Hypertension; Stroke Other Family history of Stroke; Relation Name Status Comments Other Social History Tobacco Use Types Packs/Day Years Used Date Smoking Tobacco: Never Smokeless Tobacco: Never Tobacco Cessation:Counseling Given: Not Answered Alcohol Use Standard Drinks/Week Comments Yes 0 (1 standard drink = 0.6 oz pur e alcohol) DAILY Comments Unknown Sex and Gender Information Value Date Recorded Sex Assigned at Not on file Legal 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 Gender Identity Not on file Sexual Orientation Not on file Obstetrics History Last Filed Vital Signs Vital Sign Reading [...] 10/16/2024 10:18 AM CDT Plan of Treatment Health Maintenance Due Date Last Done Comments Breast Cancer Screening-Mammogram 1972 Cervical Cancer Screening 1972 Colon Cancer Screening-Colonoscopy 1972 Depression Screening 1972 Hepatitis C Screening 1972 DTaP/Tdap/Td Vaccine (1 - Tdap) 1983 Hepatitis B Screening 1990 Regular Well Visit/Exam 18-64 1990 Zoster Vaccine (1 of 2) 2022 Covid-19 Vaccine (3 - 2023-2 5 season) 2024 10/20/2020, 09/21/2020 Influenza Vaccine (#1) 2024 Pneumococcal vaccine <65 Aged Out No longer eligible based on patient's age to complete this topic Insurance [employer] [facility] Care Teams Truck Driver Instructor Relationship Specialty Start Date End Date Reynaldo Benton DO PCP - General Internal Medicine 07/19/18
[2024-11-07 13:25] LABS: Alanine Aminotransferase 19 U/L (6-35); Albumin Level 4.5 g/dL (3.5-5.1); Alkaline Phosphatase 77 U/L (38-126); Anion Gap 9 mmol/L (4-12); Aspartate Amino Transferase 56 U/L (14-36); Bilirubin,Total 0.4 mg/dL (0.2-1.3); Blood Urea Nitrogen 15 mg/dL (7-17); Carbon Dioxide 30 mmol/L (22-30); Chloride 101 mmol/L (98-107); Cholesterol 190 mg/dL (0-200); Estimated Glomerular Filt Rate > 60; Glucose 78 mg/dL (65-110); HDL Direct 71 mg/dL; Potassium 4.6 mmol/L (3.4-5.0); Sodium 140 mmol/L (137-145); Triglycerides 75 mg/dL (<150)
[2024-11-07 13:27] LABS: Basophils Percent Auto 0.7 % (0.2-1.2); Eosinophils Absolute Auto 0.1 K/mm3 (0-0.3); Eosinophils Percent Auto 1.9 % (0-4.4); Hematocrit 40.3 % (37.0-47.0); Hemoglobin 12.9 g/dL (12.0-15.0); Immature Granulocyte Absolute 0.01 K/mm3 (0.00-0.031); Immature Granulocyte Percent A 0.2 % (0-0.5); Lymphocytes Absolute Auto 1.53 K/mm3 (0.9-3.2); Lymphocytes Percent Auto 36.1 % (18.3-44.2); Mean Corpuscular Hemoglobin 29.3 pg (26-34); Mean Corpuscular Volume 91.6 fl (80-100); Mean Platelet Volume 11.8 fl (7.4-10.4); Monocytes Absolute Auto 0.4 K/mm3 (0.1-0.6); Monocytes Percent Auto 10.1 % (2.6-8.5); Neutrophils Absolute Auto 2.2 K/mm3 (1.3-6.7); Platelet Count Result 184 k/mm3 (150-375); Red Cell Distribution Width 12.2 % (11.5-14.5); White Blood Count 4.2 K/mm3 (4.5-10.0)
[2024-11-07 13:45] LABS: LDL Cholesterol Direct 80 mg/dL
[2024-11-07 13:48] LABS: Thyroid Stimulating Hormone 0.671 uIU/mL (0.465-4.680)
== END 2024-11-07 08:57 | disposition home or self-care (01) ==
LOC: ANHGOSHLAB 08:57
PROVIDERS: PCP Internal Medicine; Visit Provider Nurse Practitioner
DX: F41.9 Anxiety disorder, unspecified (principal); Z13.220 Encounter for screening for lipoid disorders; E55.9 Vitamin D deficiency, unspecified; Z13.228 Encounter for screening for other metabolic disorders
CPT/HCPCS: 36415; 80053; 80061; 82306; 84443; 85025

== ENCOUNTER 2025-05-07 08:15 | Emergency (ER) | payer OTHER, SELFPAY ==
--- NOTE | ~2025-05-07 | XR_ITS ---
EXAMINATION: XR foot LT 2V, 05/07/2025 8:57 CDT HISTORY: possible foreign body, pain x 1 week, no inj, no surg COMPARISON: No comparisons available. Findings: No acute fracture or malalignment. No significant degenerative changes. Soft tissues unremarkable. Impression: There is no metallic radiopaque foreign body identified. Reviewed, dictated and finalized at location P. Impression: There is no metallic radiopaque foreign body identified.
[2025-05-07 08:31] VITALS: BP 113/75; PULSE 61; RESP 16; TEMP 36.2; O2SAT 99
--- NOTE | 2025-05-07 08:45 | ED_ITS ---
HPI - Wound/Laceration General Chief Complaint: Wound/Laceration Stated Complaint: L foot pain Time Seen by Provider: 05/07/25 08:45 Source: patient and RN notes reviewed Mode of arrival: ambulatory Limitations: no limitations History of Present Illness HPI narrative: 54-year-old female presents with concern for pain on her left foot. Reports she has a painful spot on the ball of her foot, she thought it could be a planter's or but then she noticed it was red and warm. She denies known injury. She does not know that she got a foreign body in the foot, she says she does not off to walk around barefoot. Related Data Allergies Allergy/AdvReac Type Severity Reaction Status Date / Time No Known Allergies Allergy Verified 05/07/25 09:14 Review of Systems Review of Systems: CONSTITUTIONAL: Denies malaise, chills, sweats, or fever. SKIN: Denies rash or itching, open skin, laceration, abrasion MUSCULOSKELETAL: Reports left foot pain, redness, warmth, swelling. 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 There is no relevant family history pertinent to the presenting complaint Exam Narrative: GENERAL: Well-appearing, well-nourished, and in no acute distress. HEAD: Normocephalic, atraumatic. EYES: PERRLA, conjunctivae clear NECK: Supple. CHEST: Speaks in full sentences. No respiratory distress. HEART: Regular rate and rhythm. Normal and equal peripheral pulses. EXTREMITIES: Left foot has grossly normal strength and sensation, grossly normal range of motion. No edema or ecchymosis. 5/5 strength with digit flexion and extension. Normal sensation with sensitivity to light touch and pain. No open wounds, no skin tenting, no devitalized tissue or atrophy, no trophic changes, no obvious deformity, alignment normal, nearby joints and structures intact. Distal pulses palpable and equal bilaterally, skin warm, dry, pink. Capillary refill less than 3 seconds. SKIN: Warm, dry, no rash. Localized redness, warmth, to the ball of the foot, possible palpable foreign body noted NEURO: Alert and oriented x3. PSYCH: Normal mood and affect Course Course Emergency Course: Patient is aware of diagnosis, understands and agrees to treatment plan. Anticipatory guidance given. Patient agrees to follow-up as directed and is aware of reasons to seek care at the emergency department. Portions of this record may have been created with voice recognition software Level of Care: Express Care Visit Vital Signs Vital signs: Vital Signs Temperature 97.2 F L 05/07/25 08:31 Pulse Rate 61 05/07/25 08:31 Respiratory Rate 16 05/07/25 08:31 Blood Pressure 113/75 05/07/25 08:31 Pulse Oximetry 99 05/07/25 08:31 Temperature 97.2 F L 05/07/25 08:31 Pulse Rate 61 05/07/25 08:31 Respiratory Rate 16 05/07/25 08:31 Blood Pressure 113/75 05/07/25 08:31 Pulse Oximetry 99 05/07/25 08:31 Reviewed. MDM - Wound/Laceration MDM Narrative Medical decision making narrative: I evaluated this patient in the express care. History is obtained from patient who is an independent historian and physical exam was performed.? Available medical records were reviewed. ? Exam findings and relevant testing show no acute concerns or changes; patient is non-toxic appearing and is in no distress. ? Differential diagnosis and treatment plan were discussed with the patient. Patient agrees with discussion and after shared medical decision making agrees with plan of care. All questions were answered to the patient's satisfaction. No foreign body visible on x-ray, will treat for localized infection and have patient follow-up with her primary care for ultrasound after completing antibiotics. Patient is appropriate for outpatient treatment and follow-up. Imaging Data My impression: Images reviewed, interpreted by radiologist, agree, see report. Radiologist's impression: EXAMINATION: XR foot LT 2V, 05/07/2025 8:57 CDT HISTORY: possible foreign body, pain x 1 week, no inj, no surg COMPARISON: No comparisons available. Findings: No acute fracture or malalignment. No significant degenerative changes. Soft tissues unremarkable. Impression: There is no metallic radiopaque foreign body identified. Critical Care Time Critical Care Time Critical Care Time: No Discharge Plan Discharge Clinical Impression: Cellulitis Patient Disposition: Home Condition: Stable Instructions: Antibiotic Form, Cellulitis (ED) Additional Instructions: Please follow up with your Primary Care Doctor in 1 week. Rest and elevate affected area; do soaks in warm water with apple cider vinegar or Epsom salts or apply moist heat 3-4 times daily for 10-15 minutes. Take Motrin 600mg every 8 hours with food for pain. Please take Antibiotics as directed. If you experience any worsening redness, swelling, streaking (red lines), fever or chills please go to the ER Patient Language: Kyrgyz Prescriptions: New penicillin V potassium 500 mg tablet 500 mg PO Q12H 10 Days Qty: 20 0RF No Action escitalopram oxalate [Lexapro] 5 mg tablet 5 mg PO DAILY Qty: 30 1RF Follow-up/Referrals: Rakel Mejia NP [Primary Care Provider, Internal Medicine] Time of Disposition: 09:21
== END 2025-05-07 09:26 | disposition home or self-care (01) ==
PROVIDERS: Emergency Provider Nurse Practitioner; PCP Nurse Practitioner
DX: L03.116 Cellulitis of left lower limb (principal); F41.9 Anxiety disorder, unspecified; F32.A Depression, unspecified
CPT/HCPCS: 73620; 99213; G0463